=== PATIENT | female | born 1970 | race Caucasian/White ===

== ENCOUNTER 2016-07-14 15:38 | Emergency (ER) | payer MEDICAID ==
[~2016-07-14] VITALS: Ht 157.5 cm; Wt 64.9 kg
[~2016-07-14 15:38] MED LIST: FLEXERIL10 MG PO; NOMEDS *; XANAX 1MG TABLET1 MG PO
--- NOTE | 2016-07-14 15:51 | Urgent Treatment Center Report ---
History of Present Issue Date/Time Seen by Provider 07/14/16 1550 Visit Reason Pt arrived:Walked Presenting Problem:PT STATES COUGH THAT HAS BEEN PRESENT FOR TWO WEEKS. STATES COUGH HAS MADE PAIN TO CHEST AND BACK. STATES COUGH HAS BEEN PRODUCTIVE TODAY. STATES COUGH IS WORSE WHEN SHE GETS HOT OR IS MOVING AROUND ALOT Location if Accident: Onset of symptoms date/time:/ or onset unknown for:MEDICAL HX UNKNOWN Have you (or family members/close friends) recently traveled outside the [place]? N If Yes, where/when: Have you had exposure to infectious disease within the past month? TB? Other? Specify: Patient states that she has had a nagging cough for over 2 weeks states that yesterday she began noticing that she was having some sinus drainage that continued to get worse and now progressed into productive cough. States that she thinks what she is coughing up may be coming from her sinuses ALLERGIES Coded Allergies: No Known Allergies (07/14/16) History Medical History General CAD? No Angina: No CO: No Hypertension? No Hyperlipidemia? No CHF? No DVT? No PE? No COPD? No Asthma? No Anemia? No GERD? No Gastric ulcers? No GI Bleed? No Hernia? No Thyroid Problems? No Hypothyroidism? No CVA? No Seizures? No Diabetes? No Renal Insuffiency? No UTI? No Stones? No GB Disease: No Nephritic Syndrome? No Asplenia? No Hepatitis? No Sickle Cell Disease? No Arthritis? No Migraines? No Cataracts? No Glaucoma? No MRSA? No HIV? No TB? No Depression? No Cancer? No Immunization HX DT/Tetanus 1-4 Years Ago Flu NEVER Pneumonia NEVER Surgical Hx Previous Surgery?Y APPENDECTOMY DX LAP T &A D & C PARTIAL HYSTERECTOMY GLAZIER STRUCTURAL GLASS Hx LMP N/A Family History Family HX Diabetes Yes CAD Yes Hypertension Yes Hyperlipidemia No Cancer Yes TB Yes Social History Smoking Hx Smoker: Current Every Day Smoker Tobacco: Yes Type Cigarettes Packs/day 1 1/2 - 2 Packs Alcohol Alcohol: No Review of Systems All Other Systems Reviewed and Negative ENT nose discharge, nose congestion. Respiratory cough Comment Cough for over 2 weeks and now having sinus pressure and pain over frontal sinsus with productive cough that is coughing up greenish colored mucous Physical Exam Vital Signs Vital Signs Date Time Temp Pulse Resp B/P Pulse O2 O2 Flow FiO2 Ox Delivery Rate 07/14 1544 99.3 85 18 137/88 98 General Appearance normal appearance, WD/WN, no apparent distress Ear, Nose, Throat sinus pain/drainage, nasal congestion, greenish discharge noted from sinuses Respiratory Status Yes: trachea midline, chest symmetrical, non tender chest. No: respiratory distress. 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 Patient is tender over frontal sinus area Medical Decision Making LABS/Meds/Orders Pt receiving controlled substance in ED? No Results/Orders Orders Procedure Date/time Status CHEST(2 VIEWS-NOT PORTABLE) 07/14 1551 Active XRAY/CT/US XRAY/CT/US XRAY chest XR interpretation by reviewed by me Xray Results normal/NAD Departure Departure Time of Disposition 1603 Disposition DC Home or Self Care(routine) Clinical Impression Primary Impression: Upper respiratory infection Qualifiers: URI type: unspecified URI Qualified Code: J06.9 - Acute upper respiratory infection, unspecified Condition STABLE Referrals Geri DEGROOT,Redd Henderson (Family) Patient Instructions Cough, DI for Cough -- Adult, DI for Sinusitis, Sinusitis ( Alternative Therapy) Additional Instructions Over the counter Motrin or Tylenol as needed for fever or pain Take medication as prescribed Follow up with family doctor if worsening of symptoms 2-3 days Return to [facility] if needed Warm salt water gargles for throat irritation Use humidifier or vaporizer to help with cough Discharge Counseling Counseled pt/family regarding diagnosis, test results, medications/RX, home care, follow up needs Prescriptions Current Visit Scripts Azithromycin (Zithromycin (Z-ARIS) 250MG Tab) 250 MG PO DAILY #6 TAB TAKE TWO (2) TABLETS ON DAY 1, THEN ONE (1) TABLET DAY #2 THRU #5 Methylprednisolone (Medrol Dose Aris) 4 MG PO UD #1 ARIS TAKE DIRECTED ON PACKAGING Guaifenesin (Adult Tussin Chest Congestion) 100 MG PO Q4HP PRN cough #120 ML at 1603
--- NOTE | 2016-07-14 15:51 | Urgent Treatment Center Report ---
History of Present Issue Date/Time Seen by Provider 07/14/16 1550 Visit Reason Pt arrived:Walked Presenting Problem:PT STATES COUGH THAT HAS BEEN PRESENT FOR TWO WEEKS. STATES COUGH HAS MADE PAIN TO CHEST AND BACK. STATES COUGH HAS BEEN PRODUCTIVE TODAY. STATES COUGH IS WORSE WHEN SHE GETS HOT OR IS MOVING AROUND ALOT Location if Accident: Onset of symptoms date/time:/ or onset unknown for:MEDICAL HX UNKNOWN Have you (or family members/close friends) recently traveled outside the [place]? N If Yes, where/when: Have you had exposure to infectious disease within the past month? TB? Other? Specify: Patient states that she has had a nagging cough for over 2 weeks states that yesterday she began noticing that she was having some sinus drainage that continued to get worse and now progressed into productive cough. States that she thinks what she is coughing up may be coming from her sinuses ALLERGIES Coded Allergies: No Known Allergies (07/14/16) History Medical History General CAD? No Angina: No [place]: No Hypertension? No Hyperlipidemia? No CHF? No DVT? No PE? No COPD? No Asthma? No Anemia? No GERD? No Gastric ulcers? No GI Bleed? No Hernia? No Thyroid Problems? No Hypothyroidism? No CVA? No Seizures? No Diabetes? No Renal Insuffiency? No UTI? No Stones? No GB Disease: No Nephritic Syndrome? No Asplenia? No Hepatitis? No Sickle Cell Disease? No Arthritis? No Migraines? No Cataracts? No Glaucoma? No MRSA? No HIV? No TB? No Depression? No Cancer? 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 Respiratory cough Comment Cough for over 2 weeks and now having sinus pressure and pain over frontal sinsus with productive cough that is coughing up greenish colored mucous Physical Exam Vital Signs Vital Signs Date Time Temp Pulse Resp B/P Pulse O2 O2 Flow FiO2 Ox Delivery Rate 07/14 1544 99.3 85 18 137/88 98 General Appearance normal appearance, WD/WN, no apparent distress Ear, Nose, Throat sinus pain/drainage, nasal congestion, greenish discharge noted from sinuses Respiratory Status Yes: trachea midline, chest symmetrical, non tender chest. No: respiratory distress. 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 Patient is tender over frontal sinus area Medical Decision Making LABS/Meds/Orders Pt receiving controlled substance in ED? No Results/Orders Orders Procedure Date/time Status CHEST(2 VIEWS-NOT PORTABLE) 07/14 1551 Active XRAY/CT/US XRAY/CT/US XRAY chest XR interpretation by reviewed by me Xray Results normal/NAD Departure Departure Time of Disposition 1603 Disposition DC Home or Self Care(routine) Clinical Impression Primary Impression: Upper respiratory infection Qualifiers: URI type: unspecified URI Qualified Code: J06.9 - Acute upper respiratory infection, unspecified Condition STABLE Referrals Geri DEGROOT,Redd Henderson (Family) Patient Instructions Cough, DI for Cough -- Adult, DI for Sinusitis, Sinusitis ( Alternative Therapy) Additional Instructions Over the counter Motrin or Tylenol as needed for fever or pain Take medication as prescribed Follow up with family doctor if worsening of symptoms 2-3 days Return to [facility] if needed Warm salt water gargles for throat irritation Use humidifier or vaporizer to help with cough Discharge Counseling Counseled pt/family regarding diagnosis, test results, medications/RX, home care, follow up needs Prescriptions Current Visit Scripts Azithromycin (Zithromycin (Z-ARIS) 250MG Tab) 250 MG PO DAILY #6 TAB TAKE TWO (2) TABLETS ON DAY 1, THEN ONE (1) TABLET DAY #2 THRU #5 Methylprednisolone (Medrol Dose Aris) 4 MG PO UD #1 ARIS TAKE DIRECTED ON PACKAGING Guaifenesin (Adult Tussin Chest Congestion) 100 MG PO Q4HP PRN cough #120 ML at 1603
[2016-07-14] MEDS ORDERED: ZITHROMAX Z PA250 MG PO (16:06)
[2016-07-14] MEDS ORDERED: MEDROL 4MG. DOSE4 MG PO (16:06)
[2016-07-14] MEDS ORDERED: ADULT TUSS100 MG/5 M PO (16:06)
[2016-07-14 16:16] VITALS: BP 137/88
--- NOTE | 2016-07-14 17:35 | RADIOLOGY REPORT PS360 ---
CHEST(2 VIEWS-NOT PORTABLE) Ordering physician: LEONOR OSEGUERA APRN Age: 45 years Female INDICATION: cough congestionPAIN/COUGH PROCEDURE: CHEST(2 VIEWS-NOT PORTABLE) FINDINGS: Previous 04/30/2014 2 view chest film used as comparison No focal pneumonia identified.. Overlying breast density advanced to the density at lung bases but no discrete pneumonia. Central markings upper normal could reflect bronchitis. No pneumothorax nor pleural effusion. Heart shawnee and mediastinal structures satisfactory. . Normal pulmonary vascularity. .. Chest wall unremarkable. T-spine unremarkable. IMPRESSION ----- Nothing definite acute at chest No significant new findings
== END 2016-07-14 16:16 | disposition home or self-care (01) ==
LOC: UTC 15:38
DX: J06.9 Acute upper respiratory infection, unspecified (principal)

== ENCOUNTER → 2016-12-21 | Outpatient (CLI) | payer MEDICAID ==
[~2016-12-21] MED LIST changes: +ADULT TUSS100 MG/5 M PO; +MEDROL 4MG. DOSE4 MG PO; +PREDNISONE 20MG20 MG PO; +TESSALON PERLE100 MG PO; +ZITHROMAX Z PA250 MG PO
[2016-12-21 16:56] LABS: HEMOGLOBIN 13.5 g/dL (12.2-16.2); LYMPH # 3.3 K/mm3 (0.7-4.5); LYMPH % 31.7 % (10-50.0)
--- NOTE | 2016-12-21 17:41 | RADIOLOGY REPORT PS360 ---
EXAM: CERVICAL SPINE 4 OR 5 VIEWS HISTORY: NECK PAIN ORDERING PHYSICIAN: Redd Nevarez MD PATIENT AGE: 46 years COMPARISON: None FINDINGS:There is slight reversal of cervical lordosis. Degenerative disc disease is present at C4-5 and C5-C6. No significant foraminal narrowing. Mild facet hypertrophic changes are present at C4, C5, and C6. No fracture or dislocation. No lytic or blastic change. IMPRESSION: Cervical spondylosis with reversal cervical lordosis which may be due to patient positioning or muscle spasm No fracture or dislocation
[2016-12-21 19:29] LABS: BUN 9 mg/dL (7-18); GFR (ESTIMATED) 90 ML/MIN (59-)
[2016-12-23 12:41] LABS: HBsAg Screen Negative (Negative); Hep A Ab, IgM Negative (Negative); Hep B Core Ab, IgM Negative (Negative); Hep C Virus Ab <0.1 (0.0-0.9)
== END ==
LOC: RAD 16:16
PROVIDERS: Emergency Medicine
DX: R53.1 Weakness (principal); M54.2 Cervicalgia

== ENCOUNTER → 2016-12-30 | Outpatient (CLI) | payer MEDICAID | LOC: RAD 12-29 17:00 | DX: Z12.31 Encounter for screening mammogram for malignant neoplasm of breast (principal) | CPT/HCPCS: G0202 ==

== ENCOUNTER → 2017-01-15 | Outpatient (CLI) | payer MEDICAID ==
--- NOTE | 2017-01-19 11:25 | RADIOLOGY REPORT PS360 ---
DIG MAMM-DX UNI A/VWS-LT W/CAD, US BREAST-LT COMPLETE W/AXILLA COMPARISON: 12/30/2016 INDICATION: Follow-up abnormal mammogram ORDERING PHYSICIAN: Redd Nevarez MD PATIENT AGE: 46 years TECHNIQUE: Spot compression views, rolled views, and left breast ultrasound FINDINGS: The asymmetric density in the lateral aspect of the left breast does appear to compress out as fibroglandular tissue. There is a persistent nodular density in the medial aspect of the left breast which measures nearly 5 mm and does persist on the spot compression view and rolled view. This is not well delineated on the orthogonal view. There is some asymmetric density noted in the retroareolar region which does appear to compress out as fibroglandular tissue. Left breast ultrasound: There is a 5 x 6 mm area of decreased echogenicity in the 10:00 area of the left breast which may correspond to the mammographic abnormality. This does appear to contain some low-level internal echoes however this nodule is well-circumscribed. The margins are however somewhat irregular laterally. IMPRESSION: Hypoechoic nodule at 10:00 and may be due to a complex cyst. BI-RADS CATEGORY: 4_Suspicious Abnormality RECOMMENDED FOLLOWUP: Fine-needle aspiration of hypoechoic nodule to determine if this is a complex cyst or solid nodule. It solid nodule then core biopsy or mammotome biopsy can be performed in the same setting. (A letter has been sent to the patient regarding results of the study.)
== END ==
LOC: RAD 12:56
DX: R92.8 Other abnormal and inconclusive findings on diagnostic imaging of breast (principal)
CPT/HCPCS: G0206-LT

== ENCOUNTER → 2017-02-02 | Outpatient (CLI) | payer MEDICAID ==
--- NOTE | 2017-02-15 06:06 | RADIOLOGY REPORT PS360 ---
US CYST ASPIRATION, US BIOPSY , US BREAST-LT COMPLETE W/AXILLA LEFT MAMMOGRAM CLINICAL INDICATION: Left breast nodule LT BREAST NODULE ASP ORDERING PHYSICIAN: Redd Nevarez MD PATIENT AGE: 46 years COMPARISON: Mammogram and ultrasound of 01/15/2017 FINDINGS: Left breast ultrasound: Prebiopsy ultrasound performed once again demonstrating the nodule of interest at the 10:00 area of the left breast. Following obtaining informed consent under aseptic conditions and local anesthesia with 1% buffered lidocaine, initial attempt was made of a fine needle aspiration with a 25-gauge needle. The nodule did not aspirate. Therefore, core biopsy was performed with a 16-gauge Bao-Cut needle. 3 core biopsies performed under sonographic guidance. The patient tolerated the procedure well without evidence of immediate complication. Pathology: Benign breast parenchyma with prominently hyalinized stroma. No atypia or malignancy. POSTBIOPSY MAMMOGRAM: There are post biopsy changes in the region of the previously noted nodule in the medial aspect of the left breast. There remains some increased density in this region probably related to post biopsy changes or residual nodule. The sonographic and mammographic findings are concordant. IMPRESSION: Uneventful ultrasound-guided biopsy of left breast without evidence of immediate complication. Pathology results showed benign findings. Recommendations: 6 month mammographic and sonographic follow-up of the left breast per routine protocol
== END ==
LOC: RAD 12:42
PROC: 0H9U3ZX Drainage of Left Breast, Percutaneous Approach, Diagnostic (ICD-10-PCS; principal; 2017-02-02)
DX: N63.20 Unspecified lump in the left breast, unspecified quadrant (principal)
CPT/HCPCS: G0206-LT

== ENCOUNTER → 2017-03-10 | Outpatient (CLI) | payer MEDICAID ==
[2017-03-11 07:37] LABS: FSH 81.7 mIU/mL (.); LH 40.6 mIU/mL (.); Progesterone <0.1 ng/mL (.)
[2017-03-14 20:39] LABS: Estrogens, Total 145 pg/mL (.)
== END ==
LOC: LAB 13:27
PROVIDERS: Emergency Medicine
DX: N95.1 Menopausal and female climacteric states (principal)